=== PATIENT | male | born 1985 | race Caucasian/White ===

== ENCOUNTER 2017-03-03 18:23 | Emergency (ER) | payer BC ==
[2017-03-03 19:41] VITALS: BP 132/84
--- NOTE | 2017-03-03 19:48 | UC ---
Upper Extremity HPI - HPI Summary HPI Summary: 31 year old male presents with complains of right chest pain. - History of Current Complaint Chief Complaint: UCUpperExtremity Stated Complaint: UPPER EXTREMITY PAIN Time Seen by Provider: 03/03/17 19:43 Hx Obtained From: Patient Onset/Duration: Sudden Onset Severity Initially: Moderate Severity Currently: Moderate Pain Scale Used: 0-10 Numeric - 5 Character: Aching Aggravating Factor(s): Movement, Lifting - Allergies/Home Medications Allergies/Adverse Reactions: Allergies Allergy/AdvReac Type Severity Reaction Status Date / Time No Known Allergies Allergy Verified 03/03/17 19:41 PMH/Surg Hx/FS Hx/Imm Hx Previously Healthy: Yes - Surgical History Surgical History: Yes Surgery Procedure, Year, and Place: hernia, - Family History Known Family History: Positive: Hypertension - Social History Alcohol Use: Weekly Substance Use Type: None Smoking Status (MU): Heavy Every Day Tobacco Smoker Type: Cigarettes, Smokeless Tobacco Amount Used/How Often: 1 can per week Review of Systems Constitutional: Negative Skin: Negative Eyes: Negative ENT: Negative Respiratory: Negative Cardiovascular: Negative Gastrointestinal: Negative Genitourinary: Negative Motor: Negative Neurovascular: Negative Musculoskeletal: Other: - right intercostal pain Neurological: Negative Psychological: Negative All Other Systems Reviewed And Are Negative: Yes Physical Exam Triage Information Reviewed: Yes Appearance: Well-Appearing Vital Signs: Initial Vital Signs Temp 37.0 C 03/03/17 19:36 Pulse 56 03/03/17 19:36 Resp 16 03/03/17 19:36 BP 132/84 03/03/17 19:36 Pulse Ox 98 03/03/17 19:36 Eye Exam: Normal ENT Exam: Normal Dental Exam: Normal Neck exam: Normal Neck: Positive: 1 Respiratory Exam: Normal Cardiovascular Exam: Normal Abdominal Exam: Normal Musculoskeletal: Positive: Other: - right intercostal msucle pain Neurological Exam: Normal Psychological Exam: Normal Skin Exam: Normal Upper Extremity Course/Dx - Differential Dx/Diagnosis Provider Diagnoses: right intercostal pain. costochondritis Discharge - Discharge Plan Condition: Stable Disposition: HOME Prescriptions: Meloxicam [Mobic] 7.5 mg PO BID PC #30 tab Methocarbamol TAB* [Robaxin 500 MG TAB*] 500 mg PO TID PRN #30 tab PRN Reason: Spasms Patient Education Materials: Costochondritis (ED) Referrals: Nicholas Hobson MD [Medical Doctor] - Ty Powell DO [Primary Care Provider] -
--- NOTE | 2017-03-03 20:42 | RAD ---
Indication: Right-sided chest wall contusion. 2 views of the chest including dual energy PA views demonstrate no mediastinal shift. Heart is of normal size and configuration. Lung hudson demonstrate no pleural fluid, pneumonia or pneumothorax. When compared to February 17, 2016 no significant change is noted. IMPRESSION: No active cardiopulmonary disease is noted.
== END 2017-03-03 20:51 | disposition home or self-care (01) ==
LOC: UCCORT 18:23
DX: M94.0 Chondrocostal junction syndrome [Tietze] (principal); F17.210 Nicotine dependence, cigarettes, uncomplicated
CPT/HCPCS: 71020; 99212; G0463

== ENCOUNTER 2017-11-26 07:27 | Emergency (ER) | payer BC ==
[2017-11-26 07:41] VITALS: BP 138/84
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
== END 2017-11-26 09:05 | disposition home or self-care (01) ==
LOC: UCCORT 07:27
DX: S49.91XA Unspecified injury of right shoulder and upper arm, initial encounter (principal); F17.290 Nicotine dependence, other tobacco product, uncomplicated; W51.XXXA Accidental striking against or bumped into by another person, initial encounter; Y93.63 Activity, rugby; Y92.9 Unspecified place or not applicable
CPT/HCPCS: 99212; G0463